=== PATIENT | female | born 1975 | race African-American/Black ===

== ENCOUNTER 2018-10-10 06:14 | Day surgery (SDC) | payer MEDICAID ==
[~2018-10-10] VITALS: Ht 154.9 cm; Wt 47.2 kg
[~2018-10-10 06:14] MED LIST: ALBU90AE IH; AMIT25TA9 PO; GABA-531 PO; LEVE750T4 PO; NAPR500T7 PO
[2018-10-10] MEDS ORDERED: LACTATED RINGERS 1,000 ML IV SCH (06:30)
[2018-10-10] MEDS ORDERED: BUPIVACAINE HCL/PF 0.25% (2.5MG/ML) 10ML ONE ×2 (06:52→07:43)
[2018-10-10] MEDS ORDERED: BACITRACIN 15GM TUBE TOP ONE (06:52)
[2018-10-10] MEDS ORDERED: BACITRACIN 50,000 UNITS/VIAL ONE (06:53)
[2018-10-10] MEDS ORDERED: VANCOMYCIN HCL 500 MG/VIAL ONE (06:53)
[2018-10-10] MEDS ORDERED: PROPOFOL 200MG/20ML VIAL IV ONE (07:02)
[2018-10-10] MEDS ORDERED: MIDAZOLAM HCL 2 MG/2 ML VIAL ONE (07:02)
[2018-10-10] MEDS ORDERED: FENTANYL CITRATE/PF 50MCG/ML 2ML VIAL ONE (07:02)
[2018-10-10 07:10] LABS: CHLORIDE 103 mEq/L (98-107)
[2018-10-10] MEDS ORDERED: DEXAMETHASONE 4MG/ML 1ML VIAL ONE (07:12)
[2018-10-10 07:14] LABS: CLARITY URINE CLEAR (CLEAR); COLOR URINE YELLOW (YELLOW); KETONES URINE NEGATIVE (NEGATIVE); LEUKOCYTE ESTERASE URINE TRACE (NEGATIVE); NITRITE URINE NEGATIVE (NEGATIVE); OCCULT BLOOD URINE NEGATIVE (NEGATIVE); PROTEIN URINE NEGATIVE (NEGATIVE); SPECIFIC GRAVITY URINE 1.014 (1.005-1.030); UROBILINOGEN URINE 0.2 E.U./dL (0.2-1.0)
[2018-10-10 07:18] LABS: BASOPHILS % 1.5 % (0.0-2.0); HEMATOCRIT. 29.9 % (36.0-48.0); HEMOGLOBIN. 9.2 g/dL (12.0-16.0); MEAN CORPUSCULAR HEMOGLOBIN 24.1 pg (28.0-32.0); MEAN CORPUSCULAR VOLUME 78.5 fL (81.0-99.0); MEAN PLATELET VOLUME 7.7 fl (7.4-10.4); MONOCYTES % 8.6 % (2.0-8.0); NEUTROPHILS % 43.9 % (40.0-76.0); PLATELET 433 x1000/uL (130-400); RED BLOOD CELL COUNT 3.81 mill/uL (4.2-5.4); RED CELL DISTRIBUTION WIDTH 26.3 % (11.6-14.6)
[2018-10-10 07:31] LABS: UCG SCREEN NEGATIVE
[2018-10-10] MEDS ORDERED: GLYCOPYRROLATE 0.2 MG/ML 2ML VIAL ONE (09:06)
[2018-10-10] MEDS ORDERED: CALC-769 PO (09:31)
[2018-10-10] MEDS ORDERED: ALBU18HF2 IH (09:31)
[2018-10-10] MEDS ORDERED: FERR-71 PO (09:31)
[2018-10-10] MEDS ORDERED: DOCU-286 PO (09:31)
[2018-10-10] MEDS ORDERED: MEPERIDINE HCL/PF 25MG/ML CPJ IV PRN (10:45)
[2018-10-10] MEDS ORDERED: PROCHLORPERAZINE 10MG/2ML VIAL IV PRN (10:45)
[2018-10-10] MEDS ORDERED: HYDROMORPHONE HCL/PF 2MG/ML CPJ IV PRN (10:45)
[2018-10-10] MEDS ORDERED: HYDROCODONE/ACETAMINOPHEN 10/325MG TABLET PO PRN (11:00)
[2018-10-10 11:19] LABS: PLATELET ESTIMATE INCREASED
== END 2018-10-10 15:30 | disposition home or self-care (01) ==
LOC: OR 06:14
PROVIDERS: ATTEND Orthopaedic Surgery
DX: T84.84XA Pain due to internal orthopedic prosthetic devices, implants and grafts, initial encounter (principal); Y83.8 Other surgical procedures as the cause of abnormal reaction of the patient, or of later complication, without mention of misadventure at the time of the procedure; Y92.89 Other specified places as the place of occurrence of the external cause; L91.0 Hypertrophic scar; G40.909 Epilepsy, unspecified, not intractable, without status epilepticus; F41.9 Anxiety disorder, unspecified; J45.909 Unspecified asthma, uncomplicated; K21.9 Gastro-esophageal reflux disease without esophagitis; Z98.890 Other specified postprocedural states; Z79.899 Other long term (current) drug therapy; Z79.1 Long term (current) use of non-steroidal anti-inflammatories (NSAID); Z88.8 Allergy status to other drugs, medicaments and biological substances; Z82.49 Family history of ischemic heart disease and other diseases of the circulatory system; Z80.3 Family history of malignant neoplasm of breast
CPT/HCPCS: 20680; 36415; 71045; 73100; 80048; 81003; 81025; 85025; 86850; 86900; 86901; 88300; 88305; J1100; J2250; J2704; J3010; J3490; J3370

== ENCOUNTER 2019-03-01 00:13 | Emergency (ER) | payer MEDICAID ==
[~2019-03-01] VITALS: Ht 152.4 cm; Wt 43.8 kg
[~2019-03-01 00:13] MED LIST changes: +ALBU18HF2 IH; -ALBU90AE IH; +CALC-769 PO; +DOCU-286 PO; +FERR-71 PO; -GABA-531 PO; -NAPR500T7 PO
[2019-03-01 02:46] LABS: CLARITY URINE TURBID (CLEAR); KETONES URINE 1+ (NEGATIVE); LEUKOCYTE ESTERASE URINE 3+ (NEGATIVE); NITRITE URINE POSITIVE (NEGATIVE); OCCULT BLOOD URINE 3+ (NEGATIVE); PH URINE 5.5 (4.5-8.0); PROTEIN URINE 3+ (NEGATIVE); SPECIFIC GRAVITY URINE 1.029 (1.005-1.030)
[2019-03-01 02:54] LABS: COLOR URINE BLOODY (YELLOW)
[2019-03-01 03:13] LABS: BASOPHILS % 1.3 % (0.0-2.0); EOSINOPHILS % 1.3 % (0.0-5.0); HEMATOCRIT. 28.7 % (36.0-48.0); HEMOGLOBIN. 9.2 g/dL (12.0-16.0); LYMPHOCYTES % 38.4 % (20.0-50.0); MEAN CORPUSCULAR HEMOGLOBIN 25.8 pg (28.0-32.0); MEAN CORPUSCULAR VOLUME 80.2 fL (81.0-99.0); MEAN PLATELET VOLUME 7.9 fl (7.4-10.4); MONOCYTES % 7.4 % (2.0-8.0); NEUTROPHILS % 51.6 % (40.0-76.0); PLATELET 212 x1000/uL (130-400); RED BLOOD CELL COUNT 3.57 mill/uL (4.2-5.4)
[2019-03-01 03:20] LABS: CHLORIDE 108 mEq/L (98-107)
[2019-03-01 04:52] LABS: PLATELET ESTIMATE NORMAL
[2019-03-01 05:00] VITALS: BP 141/60
[2019-03-02] MEDS ORDERED: ACET-2853 MT (02:32)
[2019-03-02] MEDS ORDERED: CALC-38 MT (02:32)
[2019-03-02] MEDS ORDERED: IBUP-2029 PO (02:32)
[2019-03-02] MEDS ORDERED: MONT10TA24 MT (02:32)
[2019-03-02] MEDS ORDERED: RANI150T7 MT (02:32)
[2019-03-02] MEDS ORDERED: HYDR50SY PO (02:32)
== END 2019-03-01 05:01 | disposition home or self-care (01) ==
LOC: ER 00:13
DX: N93.9 Abnormal uterine and vaginal bleeding, unspecified (principal); R10.30 Lower abdominal pain, unspecified; D64.9 Anemia, unspecified
CPT/HCPCS: 36415; 76830; 76856; 81025; 86850; 86900; 99284

== ENCOUNTER 2019-03-01 22:18 | Inpatient (IN) | payer MEDICAID ==
[~2019-03-01] VITALS: Ht 312.4 cm; Wt 45.8 kg
[2019-03-01] MEDS ORDERED: FENTANYL CITRATE/PF 50MCG/ML 2ML VIAL IV ONE (23:00)
[2019-03-01] MEDS ORDERED: CEFTRIAXONE 1 G PREMIX 50 ML IV ONE ×2 (23:00→23:45)
[2019-03-01 23:10] LABS: BASOPHILS % 0.8 % (0.0-2.0); HEMATOCRIT. 22.5 % (36.0-48.0); HEMOGLOBIN. 7.3 g/dL (12.0-16.0); LYMPHOCYTES % 42.6 % (20.0-50.0); MEAN CORPUSCULAR HEMOGLOBIN 26.1 pg (28.0-32.0); MEAN CORPUSCULAR VOLUME 80.4 fL (81.0-99.0); MEAN PLATELET VOLUME 8.3 fl (7.4-10.4); MONOCYTES % 6.4 % (2.0-8.0); NEUTROPHILS % 49.2 % (40.0-76.0); PLATELET 176 x1000/uL (130-400); RED CELL DISTRIBUTION WIDTH 24.9 % (11.6-14.6)
[2019-03-01 23:54] LABS: CHLORIDE 107 mEq/L (98-107)
[2019-03-02 00:12] LABS: INR 1.1; PROTHROMBIN TIME 11.6 sec (9.6-11.0)
[2019-03-02 01:35] VITALS: BP 110/60
[2019-03-02 02:15] VITALS: BP 114/58
[2019-03-02] MEDS ORDERED: RANI150T7 MT (02:32)
[2019-03-02] MEDS ORDERED: ACET-2853 MT (02:32)
[2019-03-02] MEDS ORDERED: MONT10TA24 MT (02:32)
[2019-03-02] MEDS ORDERED: IBUP-2029 PO (02:32)
[2019-03-02] MEDS ORDERED: HYDR50SY PO (02:32)
[2019-03-02] MEDS ORDERED: CALC-38 MT (02:32)
[2019-03-02 04:00] VITALS: BP 126/54
[2019-03-02] MEDS: HYDROCODONE/ACETAMINOPHEN 5/325MG TABLET PO PRN ×2 (05:36→15:38)
[2019-03-02] MEDS ORDERED: POTASSIUM CHLORIDE 20MEQ TABLET SR PO NR ×2 (06:00→20:30)
[2019-03-02 08:00] VITALS: BP 150/80
[2019-03-02] MEDS: FERROUS SULFATE 325MG TABLET PO SCH ×3 (09:35→17:27)
[2019-03-02] MEDS: LEVETIRACETAM 500MG TABLET PO SCH ×2 (09:38→20:29)
[2019-03-02 11:47] VITALS: BP 106/41
[2019-03-02 16:00] VITALS: BP 108/52
[2019-03-02 18:11] LABS: BASOPHILS % 0.9 % (0.0-2.0); EOSINOPHILS % 0.7 % (0.0-5.0); MEAN CORPUSCULAR HEMOGLOBIN 26.4 pg (28.0-32.0); MEAN CORPUSCULAR VOLUME 82.1 fL (81.0-99.0); MONOCYTES % 6.2 % (2.0-8.0); NEUTROPHILS % 59.2 % (40.0-76.0); PLATELET 160 x1000/uL (130-400); RED BLOOD CELL COUNT 2.54 mill/uL (4.2-5.4); RED CELL DISTRIBUTION WIDTH 24.6 % (11.6-14.6)
[2019-03-02 18:18] LABS: CHLORIDE 109 mEq/L (98-107)
[2019-03-02 18:27] LABS: TOTAL IRON BINDING CAPACITY 312 ug/dL (250-450)
[2019-03-02 18:49] LABS: HEMATOCRIT. 20.9 % (36.0-48.0); HEMOGLOBIN. 6.7 g/dL (12.0-16.0)
[2019-03-02] MEDS ORDERED: MORPHINE SULFATE 2 MG/ML CPJ (NOT FOR IM USE) IV PRN (19:15)
[2019-03-03] VITALS (7 sets, daily range): BP systolic 104–125; BP diastolic 45–60
[2019-03-03 07:39] LABS: BASOPHILS % 0.9 % (0.0-2.0); EOSINOPHILS % 1.6 % (0.0-5.0); HEMATOCRIT. 25.6 % (36.0-48.0); LYMPHOCYTES % 33.7 % (20.0-50.0); MEAN CORPUSCULAR HEMOGLOBIN 27.3 pg (28.0-32.0); MEAN CORPUSCULAR VOLUME 82.7 fL (81.0-99.0); MEAN PLATELET VOLUME 8.4 fl (7.4-10.4); NEUTROPHILS % 55.8 % (40.0-76.0); PLATELET 158 x1000/uL (130-400); RED CELL DISTRIBUTION WIDTH 21.4 % (11.6-14.6)
[2019-03-03 07:43] LABS: INR 1.1; PROTHROMBIN TIME 10.9 sec (9.6-11.0)
[2019-03-03 07:50] LABS: HEMOGLOBIN. 8.4 g/dL (12.0-16.0)
[2019-03-03] MEDS: FERROUS SULFATE 325MG TABLET PO SCH ×2 (08:53→12:17)
[2019-03-03] MEDS: LEVETIRACETAM 500MG TABLET PO SCH (08:53)
[2019-03-03] MEDS: HYDROCODONE/ACETAMINOPHEN 5/325MG TABLET PO PRN (09:19)
== END 2019-03-03 15:43 | disposition home or self-care (01) | DRG 532 ==
LOC: ER 23:17 → 6EST 03-02 00:50 → EDBEDREQTM 03-02 00:52 → EDBEDREQSVC 03-02 00:52 → EDBEDREQ 03-02 00:52 → ENRESERV 03-02 00:56
PROVIDERS: ADMIT Internal Medicine; ATTEND Internal Medicine
PROC: 30233N1 Transfusion of Nonautologous Red Blood Cells into Peripheral Vein, Percutaneous Approach (ICD-10-PCS; principal; 2019-03-03)
DX: N93.9 Abnormal uterine and vaginal bleeding, unspecified (principal); D50.0 Iron deficiency anemia secondary to blood loss (chronic); E87.6 Hypokalemia; G40.909 Epilepsy, unspecified, not intractable, without status epilepticus; G89.29 Other chronic pain; M54.5 Low back pain; Z79.899 Other long term (current) drug therapy; Z88.8 Allergy status to other drugs, medicaments and biological substances
CPT/HCPCS: 36415; 80048; 83540; 83550; 85044; 85384; 86850; 86900; 86920; 93970; 96365; 96375; 99285; C1893; J0696; J3010; J7040; P9016